=== PATIENT | female | born 2000 | race Two or more races ===

== ENCOUNTER 2022-01-13 13:27 | Emergency (ER) | payer MEDICAID ==
[~2022-01-13] VITALS: Ht 170.2 cm; Wt 65.9 kg
[2022-01-13] MEDS ORDERED: PERTUSS(ACELL),DIPH,TET VAC/PF 0.5 ML SYRINGE IM. ONE (14:45)
[2022-01-13] MEDS ORDERED: LIDOCAINE 1% 10 ML VIAL ID ONE (15:00)
[2022-01-13 15:37] VITALS: BP 112/61
== END 2022-01-13 15:39 | disposition home or self-care (01) ==
LOC: EMS 13:53
DX: S51.012A Laceration without foreign body of left elbow, initial encounter (principal); K21.9 Gastro-esophageal reflux disease without esophagitis; Z98.890 Other specified postprocedural states; W26.8XXA Contact with other sharp object(s), not elsewhere classified, initial encounter; Y93.39 Activity, other involving climbing, rappelling and jumping off; Y92.89 Other specified places as the place of occurrence of the external cause; Y99.8 Other external cause status
CPT/HCPCS: 99283; 73070; 90715; 90471; 12002; J3490; 12001